=== PATIENT | male | born 1965 | race Caucasian/White ===

== ENCOUNTER 2018-10-06 18:27 | Outpatient (REF) | payer BC, SELFPAY ==
[2018-10-06 22:20] LABS: BUN 16 mg/dL (7-18); CREATININE 1.14 mg/dL (0.70-1.30); Calcium 8.7 mg/dL (8.5-10.1); Chloride 102 mmol/L (98-107); Glucose 84 mg/dL (70-100); Potassium 4.2 mmol/L (3.5-5.1); Sodium 140 mmol/L (136-145)
== END 2018-10-06 18:47 ==
LOC: NCHCN 18:27
PROVIDERS: Visit Provider Family Medicine
DX: I10 Essential (primary) hypertension (principal)
CPT/HCPCS: 80048

== ENCOUNTER 2020-01-12 18:05 | Outpatient (REF) | payer BC, SELFPAY ==
[2020-01-12 21:29] LABS: ALT 64 U/L (16-63); AST 22 U/L (15-37); Albumin 4.1 g/dL (3.4-5.0); Alkaline Phosphatase 88 U/L (46-116); Anion Gap 3.8 mmol/L (3-11); BUN 14 mg/dL (7-18); Bilirubin, Total 0.4 mg/dL (0.2-1.0); CO2 30.2 mmol/L (21.0-32.0); CREATININE 1.06 mg/dL (0.70-1.30); Calcium 8.9 mg/dL (8.5-10.1); Calculated LDL 85 mg/dL (<100); Chloride 103 mmol/L (98-107); Cholesterol 156 mg/dL (<200); Glucose 68 mg/dL (74-106); HDL Cholesterol 47 mg/dL (40-60); Potassium 4.2 mmol/L (3.5-5.1); Sodium 137 mmol/L (136-145); Total Protein 7.2 g/dL (6.4-8.2); Triglyceride 122 mg/dL (<150)
== END 2020-01-12 18:25 ==
LOC: NCHCN 18:05
PROVIDERS: Visit Provider Family Medicine
DX: I10 Essential (primary) hypertension (principal)
CPT/HCPCS: 80053; 80061

== ENCOUNTER 2021-01-17 16:57 | Outpatient (REF) | payer OTHER, SELFPAY ==
[2021-01-17 20:56] LABS: ALT 50 U/L (16-63); AST 26 U/L (15-37); Albumin 3.8 g/dL (3.4-5.0); Alkaline Phosphatase 83 U/L (46-116); Anion Gap 8.9 mmol/L (3-11); BUN 15 mg/dL (7-18); Bilirubin, Total 0.5 mg/dL (0.2-1.0); CO2 26.1 mmol/L (21.0-32.0); Calcium 8.9 mg/dL (8.5-10.1); Chloride 105 mmol/L (98-107); Glucose 92 mg/dL (74-106); Potassium 3.9 mmol/L (3.5-5.1); Sodium 140 mmol/L (136-145); Total Protein 6.7 g/dL (6.4-8.2)
== END 2021-01-17 16:58 | disposition home or self-care (01) ==
LOC: NCHCN 16:57
PROVIDERS: Visit Provider Family Medicine
DX: I10 Essential (primary) hypertension (principal); R74.01 Elevation of levels of liver transaminase levels; E66.9 Obesity, unspecified
CPT/HCPCS: 80053

== ENCOUNTER 2022-01-16 17:52 | Outpatient (REF) | payer OTHER, SELFPAY ==
[2022-01-16 20:34] LABS: ALT 44 U/L (16-63); AST 22 U/L (15-37); Alkaline Phosphatase 81 U/L (46-116); BUN 17 mg/dL (7-18); Bilirubin, Total 0.3 mg/dL (0.2-1.0); CREATININE 1.1 mg/dL (0.70-1.30); Calcium 8.6 mg/dL (8.5-10.1); Calculated LDL 89 mg/dL (<100); Chloride 103 mmol/L (98-107); Cholesterol 164 mg/dL (<200); Glucose 85 mg/dL (74-106); HDL Cholesterol 49 mg/dL (40-60); Potassium 4.2 mmol/L (3.5-5.1); Sodium 141 mmol/L (136-145); Total Protein 6.9 g/dL (6.4-8.2); Triglyceride 131 mg/dL (<150)
== END 2022-01-16 17:53 | disposition home or self-care (01) ==
LOC: NCHCN 17:52
PROVIDERS: Visit Provider Family Medicine
DX: Z00.00 Encounter for general adult medical examination without abnormal findings (principal); I10 Essential (primary) hypertension; R74.8 Abnormal levels of other serum enzymes
CPT/HCPCS: 80053; 80061

== ENCOUNTER 2022-12-16 16:32 | Outpatient (REF) | payer OTHER, SELFPAY ==
[2022-12-16 20:34] LABS: HCT 44.9 % (40.0-50.0); HGB 15.2 g/dL (13.5-17.5); MCH 31.1 pg (27.0-33.0); MCHC 33.9 % (32.0-36.0); MCV 92 fL (80-95); MPV 12.1 fL (8.0-11.0); Platelet Count 178 10^3/uL (130-400); RBC 4.88 10^6/uL (4.36-5.78); RDW 13.2 % (11.8-14.1); RDW-SD 44.6 fL; WBC 11.69 10^3/uL (4.4-10.8)
[2022-12-16 20:56] LABS: Iron 68 ug/dL (65-175); Total Iron Binding Capacity 291 ug/dL (250-450); Transferrin Sat 23 % (20-55)
[2022-12-16 21:00] LABS: ALT 32 U/L (16-63); AST 22 U/L (15-37); Albumin 3.9 g/dL (3.4-5.0); Alkaline Phosphatase 85 U/L (46-116); Anion Gap 11.2 mmol/L (3-11); BUN 21 mg/dL (7-18); Bilirubin, Total 0.3 mg/dL (0.2-1.0); CO2 25.8 mmol/L (21.0-32.0); Calcium 9.1 mg/dL (8.5-10.1); Chloride 102 mmol/L (98-107); Estimated GFR 87.24 (mL/min/1.73m2); Ferritin 103 ng/mL (26-388); Glucose 93 mg/dL (74-106); Potassium 3.9 mmol/L (3.5-5.1); Sodium 139 mmol/L (136-145); Total Protein 7.4 g/dL (6.4-8.2)
[2022-12-16 21:52] LABS: Vitamin D 25 Total 19.9 ng/mL (30-100)
[2022-12-17 20:04] LABS: PSA, Screening 0.4 ng/mL (<=3.5)
[2022-12-18 10:15] LABS: Transferrin 227 mg/dL (201-352)
== END 2022-12-16 16:33 | disposition home or self-care (01) ==
LOC: NCHCN 16:32
PROVIDERS: Visit Provider Family Medicine
DX: M79.10 Myalgia, unspecified site (principal); R35.1 Nocturia; Z83.2 Family history of diseases of the blood and blood-forming organs and certain disorders involving the immune mechanism; E66.9 Obesity, unspecified; I10 Essential (primary) hypertension
CPT/HCPCS: 80053; 82306; 84153; 85027; 82728; 83540; 83550; 84466

== ENCOUNTER 2023-02-20 15:01 | Outpatient (REF) | payer OTHER, SELFPAY ==
[2023-02-20 15:02] LABS: Hemoglobin A1C 4.7 % (<5.7)
== END 2023-02-20 15:02 | disposition home or self-care (01) ==
LOC: NCHCN 15:01
PROVIDERS: Visit Provider Registered Nurse
DX: R53.83 Other fatigue (principal); I10 Essential (primary) hypertension; R79.89 Other specified abnormal findings of blood chemistry
CPT/HCPCS: 83036; 84443

== ENCOUNTER 2023-03-26 18:23 | Outpatient (REF) | payer OTHER, SELFPAY ==
[2023-03-26 21:41] LABS: Vitamin D 25 Total 53.4 ng/mL (30-100)
== END 2023-03-26 18:24 | disposition home or self-care (01) ==
LOC: NCHCN 18:23
PROVIDERS: Visit Provider Family Medicine
DX: E55.9 Vitamin D deficiency, unspecified (principal)
CPT/HCPCS: 82306

== ENCOUNTER 2023-12-18 15:54 | Outpatient (REF) | payer OTHER, SELFPAY ==
[2023-12-18 21:18] LABS: BUN 23 mg/dL (7-18); Calcium 9.5 mg/dL (8.5-10.1); Calculated LDL 69 mg/dL (<100); Chloride 105 mmol/L (98-107); Cholesterol 164 mg/dL (<200); Glucose 99 mg/dL (74-106); HDL Cholesterol 66 mg/dL (40-60); Potassium 4.3 mmol/L (3.5-5.1); Sodium 142 mmol/L (136-145); Triglyceride 146 mg/dL (<150)
== END 2023-12-18 15:55 | disposition home or self-care (01) ==
LOC: NCHCN 15:54
PROVIDERS: Visit Provider Family Medicine
DX: Z13.6 Encounter for screening for cardiovascular disorders (principal)
CPT/HCPCS: 80048; 80061